=== PATIENT | male | born 1995 | race African-American/Black ===

== ENCOUNTER 2021-10-01 08:00 | Emergency (ER) | payer MEDICAID ==
[~2021-10-01] VITALS: Ht 185.4 cm; Wt 100.0 kg
[2021-10-01] MEDS ORDERED: dexamethasone sod phosphate 10mg/ml inj IV STA (08:18)
[2021-10-01] MEDS ORDERED: clindamycin-Cleocin 900mg/D5W 50 ML IV ONE (08:20)
[2021-10-01] MEDS ORDERED: iohexol 300mg/ml 100ml inj. ONE (08:35)
[2021-10-01] MEDS ORDERED: normal saline 1000ML IV soln IV ONE (09:15)
[2021-10-01] MEDS ORDERED: NO HOME MEDS (09:37)
[2021-10-01 09:52] LABS: ALANINE AMINOTRANSFERASE 32 U/L (12-78); ALKALINE PHOSPHATASE 91 IU/L (46-116); ASPARTATE AMINO TRANSFERASE 33 U/L (10-37); BILIRUBIN,TOTAL 0.4 MG/DL (0.1-1.0); BLOOD UREA NITROGEN 13 MG/DL (7-18); BUN/CREATININE RATIO 10.2 (5.4-32.0); CALCIUM 8.7 MG/DL (8.5-10.1); CHLORIDE 104 MMOL/L (99-107); CREATININE 1.28 MG/DL (0.60-1.10); GLUCOSE 93 MG/DL (70-104); MAGNESIUM 2.2 MG/DL (1.5-2.4); POTASSIUM 3.6 MMOL/L (3.5-5.1); SODIUM 142 MMOL/L (135-145); TOTAL PROTEIN 8.2 G/DL (6.4-8.2); eGFR 67 ML/MIN
[2021-10-01 09:53] LABS: ANION GAP 11 (8-16); TOTAL CARBON DIOXIDE 26.7 MMOL/L (24-32)
[2021-10-01 09:54] LABS: BASOPHILS % (AUTO) 0.2 % (0-1); EOSINOPHILS # (AUTO) 0.3 X10'3 (0-0.9); EOSINOPHILS % (AUTO) 3.9 % (0-6); HEMATOCRIT 42.4 % (42.0-52.0); HEMOGLOBIN 13.7 g/dl (14.0-17.9); LYMPHOCYTES # (AUTO) 2.5 X10'3 (1.1-4.8); LYMPHOCYTES % (AUTO) 32.7 % (21-51); MEAN CORPUSCULAR HEMOGLOBIN 28.4 PG (27.0-31.0); MEAN CORPUSCULAR HGB CONC 32.2 g/dL (33.0-36.5); MEAN CORPUSCULAR VOLUME 88.2 FL (78-98); MEAN PLATELET VOLUME 7.8 FL (7.4-10.4); MONOCYTES # (AUTO) 0.5 X10'3 (0-0.9); NEUTROPHILS # (AUTO) 4.3 X10'3 (1.8-7.7); NEUTROPHILS % (AUTO) 56.2 % (42-75); PLATELET COUNT 294 X10'3 (140-440); RED BLOOD COUNT 4.81 X10'6 (4.70-6.10); WHITE BLOOD COUNT 7.6 X10'3 (4.5-11.0)
[2021-10-01 10:15] VITALS: BP 132/91
== END 2021-10-01 13:00 | disposition short-term general hospital (02) ==
LOC: ER 08:00
DX: K12.2 Cellulitis and abscess of mouth (principal); Z20.822 Contact with and (suspected) exposure to COVID-19; J02.9 Acute pharyngitis, unspecified; R13.10 Dysphagia, unspecified
CPT/HCPCS: 36415; 70491; 80053; 83605; 83735; 84145; 85025; 87040; 87635; 96365; 96375; 99285; C9803; J1100; J3490; J7030; Q9967

== ENCOUNTER 2021-10-19 09:57 | Emergency (ER) | payer MEDICAID ==
[~2021-10-19] VITALS: Ht 182.9 cm; Wt 109.1 kg
[~2021-10-19 09:57] MED LIST: NO HOME MEDS
[2021-10-19 10:00] VITALS: BP 149/90
[2021-10-19 10:37] LABS: CLARITY,URINE SLIGHTLY CLOUDY (Clear); COLOR,URINE YELLOW (Yellow); GLUCOSE, URINE NEGATIVE (Neg); KETONES,URINE NEGATIVE (Neg); LEUKOCYTE ESTERASE ,URINE TRACE (Neg); NITRITES, URINE NEGATIVE (Neg); OCCULT BLOOD,URINE NEGATIVE (Neg); PH,URINE 6.5 (4.8-8.0); PROTEIN,URINE NEGATIVE (Neg); UROBILINOGEN,URINE 0.2 E.U/dL (0.2-1.0)
[2021-10-19 10:42] LABS: UA COLLECTION TYPE VOIDED
[2021-10-19 10:43] LABS: MUCUS STRANDS MANY /LPF (Neg); SQUAMOUS EPITHELIAL CELL,UR FEW /LPF (FEW); WBC,URINE TNTC /HPF (0-4)
[2021-10-19 10:44] LABS: BACTERIA,URINE FEW /HPF (Neg); RBC,URINE 0-2 /HPF (0-2)
[2021-10-19] MEDS ORDERED: DOXYCYCLINE 100MG CAPSULE PO STA (11:13)
[2021-10-19] MEDS ORDERED: CEFTRIAXONE 500 MG VIAL IM ONE (11:15)
[2021-10-19] MEDS ORDERED: DOXY150T5 PO (11:22)
[2021-10-19] MEDS ORDERED: CefTRIAXone 1000mg IM Kit (w/lidocaine diluent) IM ONE (11:25)
--- NOTE | 2021-10-19 11:45 | NUR ---
Pt given and understands d/c instructions. Ambulatory with a steady gait.
== END 2021-10-19 11:49 | disposition home or self-care (01) ==
LOC: ER 09:58
DX: Z20.2 Contact with and (suspected) exposure to infections with a predominantly sexual mode of transmission (principal); A64 Unspecified sexually transmitted disease; Z79.2 Long term (current) use of antibiotics
CPT/HCPCS: 81001; 87088; 96372; 99283; J0696

== ENCOUNTER 2024-01-29 08:31 | Emergency (ER) | payer MEDICAID, OTHER ==
[~2024-01-29] VITALS: Ht 182.9 cm; Wt 122.8 kg
[2024-01-29 08:38] VITALS: BP 127/73; PULSE 82; RESP 16; TEMP 98.6; O2SAT 96
== END 2024-01-29 11:27 | disposition left against medical advice (07) ==
LOC: ER 08:31
DX: T17.298A Other foreign object in pharynx causing other injury, initial encounter (principal); Z53.21 Procedure and treatment not carried out due to patient leaving prior to being seen by health care provider; W44.8XXA Other foreign body entering into or through a natural orifice, initial encounter; Y93.89 Activity, other specified; Y92.89 Other specified places as the place of occurrence of the external cause; Y99.8 Other external cause status